=== PATIENT | male | born 1985 | race African-American/Black ===

== ENCOUNTER 2022-06-08 23:30 | Emergency (ER) | payer SELFPAY ==
[~2022-06-08] VITALS: Ht 185.4 cm; Wt 127.0 kg
[2022-06-08 23:35] VITALS: BP 146/108
--- NOTE | 2022-06-08 23:35 | NUR ---
PT [facility]. TAKEN TO BED 7
--- NOTE | 2022-06-08 23:35 | NUR ---
[facility] AT BEDSIDE
--- NOTE | 2022-06-08 23:35 | NUR ---
Dr. Cat examining patient/
[2022-06-08] MEDS ORDERED: LORazepam 2 MG/ML VIAL IVP ONE (23:40)
[2022-06-08 23:52] LABS: BASOPHILS # (AUTO) 0.1 K/uL (0.00-0.22); BASOPHILS % (AUTO) 0.4 % (0.0-2.0); EOSINOPHILS # (AUTO) 0.5 K/uL (0-0.4); EOSINOPHILS % (AUTO) 2.7 % (0.0-4.0); HEMATOCRIT 45.1 % (36-52); HEMOGLOBIN 14.9 g/dL (12.0-18.0); LYMPHOCYTES # (AUTO) 2.6 K/uL (2.0-11.5); MEAN CORPUSCULAR HEMOGLOBIN 26 pg (27-31); MEAN CORPUSCULAR HGB CONC 33 g/dL (33-37); MEAN CORPUSCULAR VOLUME 78.7 fL (80-94); MONOCYTES # (AUTO) 1.4 K/uL (0.8-1.0); MONOCYTES % (AUTO) 7.1 % (1.7-9.3); NEUTROPHILS # (AUTO) 14.3 K/uL (1.8-7.7); NEUTROPHILS % (AUTO) 75.8 % (42.2-75.2); PLATELET COUNT (AUTO) 370 K/uL (140-450); RED BLOOD CELL COUNT(AUTO) 5.73 MIL/uL (4.20-6.10); RED CELL DISTRIBUTION WIDTH 13.1 % (11.6-13.7); WHITE BLOOD COUNT (AUTO) 18.9 K/uL (4.8-10.8)
--- NOTE | 2022-06-08 23:52 | NUR ---
[facility] AT BEDSIDE
[2022-06-09] LABS: ALBUMIN 3.4 g/dL (3.4-5.0); ANION GAP 17.8 (8-16); ASPARTATE AMINOTRANSFERASE 15 U/L (15-37); CARBON DIOXIDE 24.2 mmol/L (21-32); CHLORIDE 99 mmol/L (98-107); CREATININE 1.3 mg/dL (0.6-1.3); GFR ARICAN-AMERICAN 79 mL/min (>90); GLUCOSE 118 mg/dL (74-106); SALICYLATE 4.6 mg/dL (2.8-20.0); SODIUM SERUM 137 mmol/L (136-145); TOTAL BILIRUBIN 1.2 mg/dL (0.0-1.0); UREA NITROGEN, BLOOD 16 mg/dL (7-18)
[2022-06-09] MEDS ORDERED: NACL 0.9% 1,000 ML IV ONE
--- NOTE | 2022-06-09 00:01 | NUR ---
Dr. Cat examining patient.
[2022-06-09 00:07] LABS: ACETAMINOPHEN < 0.5 ug/ml (10-30)
--- NOTE | 2022-06-09 00:34 | NUR ---
36YR OLD MALE BIB EMS C/O ALOC . 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 PT SKIN WARM AND DRY. RESP EVEN AND UNLABORED. 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 NKDA NO HX
[2022-06-09 00:35] VITALS: BP 135/97
--- NOTE | 2022-06-09 00:35 | NUR ---
Patient D/C to custody.
--- NOTE | 2022-06-09 00:36 | NUR ---
The patient's care was reviewed and supervised by Marilin Louie RN.
[2022-06-09 01:15] LABS: BARBITURATE, URINE NEGATIVE ng/ml (NEG <=200); BENZODIAZEPINE, URINE NEGATIVE ng/mL (NEG <=200); CANNABINOID, URINE POSITIVE ng/mL (NEG <=50); COCAINE, URINE POSITIVE ng/mL (NEG <=300); OPIATE, URINE NEGATIVE ng/mL (NEG <=2000); PHENCYCLIDINE SCREEN,URINE NEGATIVE ng/mL (NEG <=25)
== END 2022-06-09 00:35 ==
LOC: MED 23:30
DX: F14.10 Cocaine abuse, uncomplicated (principal)
CPT/HCPCS: 36415; 80053; 80305; 85025; 93005; 96374; 99284; G0480; G0482; J2060; 99283